=== PATIENT | female | born 1980 | race American Indian/Alaskan Native ===

== ENCOUNTER 2020-11-18 13:36 | Emergency (ER) | payer MEDICAID ==
[2020-11-18] MEDS ORDERED: ASPIRIN 325 MG TAB PO ONE (14:20)
--- NOTE | 2020-11-18 14:20 | Event Note ---
ED Screening Note ED Screening Note: Patient is a 39-year-old female presents emergency room complaints of left-sided chest pain that began at 12:30 PM today States it feels like intermittent sharp jolts She states that she has tingling in her right arm she denies any radiation to her back neck or jaw She denies any fever, nausea, vomiting, diarrhea, cough, shortness of breath Past medical history of hypertension and states that she has been out of her nifedipine 60 mg for 3 days No allergies to medications She endorses tobacco use She states her grandmother had an PR at 25 years old This initial assessment/diagnostic orders/clinical plan/treatment(s) is/are subject to change based on patients health status, clinical progression and re- assessment by fellow clinical providers in the ED. Further treatment and workup at subsequent clinical providers discretion. Patient/guardian urged not to elope from the ED as their condition may be serious if not clinically assessed and managed. Initial orders include: Chest pain protocol
[2020-11-18 14:54] LABS: Basophils % (Auto) 0.7 % (0.0-1.8); Eosinophils # (Auto) 0.2 K/mm3 (0.0-0.4); Eosinophils % (Auto) 4.1 % (0.0-4.3); Hematocrit 26.2 % (30.3-42.9); Hemoglobin 8.4 gm/dl (10.1-14.3); Lymphocytes # (Auto) 2.1 K/mm3 (1.2-5.4); Lymphocytes % (Auto) 35.8 % (13.4-35.0); Mean Corpuscular HGB Conc 32 % (30-34); Monocytes # (Auto) 0.3 K/mm3 (0.0-0.8); Monocytes % (Auto) 5.1 % (0.0-7.3); Red Blood Count 4.27 M/mm3 (3.65-5.03)
[2020-11-18] MEDS ORDERED: ASPIRIN 325 MG TAB PO SCH (15:00)
[2020-11-18 15:01] LABS: Mean Corpuscular Volume 61 fl (79-97)
[2020-11-18 15:19] LABS: Alanine Aminotransferase 9 units/L (7-56); Albumin 3.7 g/dL (3.9-5); Blood Urea Nitrogen 8 mg/dL (7-17); Calcium 8.5 mg/dL (8.4-10.2); Hemolysis Index 0
[2020-11-18 15:25] LABS: BUN/Creatinine Ratio 13
--- NOTE | 2020-11-18 15:38 | XRay Report ---
XR chest routine 2V INDICATION / CLINICAL INFORMATION: Chest Pain. COMPARISON: None available. FINDINGS: SUPPORT DEVICES: None. HEART /PULMONARY VASCULATURE: No significant abnormality. LUNGS / PLEURA: No significant pulmonary or pleural abnormality. No pneumothorax. ADDITIONAL FINDINGS: No significant additional findings. IMPRESSION: 1. No acute findings. Signer Name: Gerry Moore MD Signed: 11/18/2020 3:34 PM Workstation Name: [id number]
[2020-11-18] MEDS ORDERED: MORPHINE 4 MG/1 ML INJ IV ONE (17:24)
[2020-11-18] MEDS ORDERED: NITROGLYCERIN 0.4 MG TAB SUBL SL PRN (17:24)
[2020-11-18] MEDS ORDERED: amLODIPine 5 MG TAB PO ONE (17:24)
[2020-11-18] MEDS ORDERED: SODIUM CHLORIDE 0.9% 500 ML 500 ML IV ONE (17:24)
[2020-11-18] MEDS ORDERED: FERROUS SULFATE 325 MG TAB PO ONE (17:24)
--- NOTE | 2020-11-18 17:25 | Emergency Department Report ---
ED Chest Pain HPI - General Chief Complaint: Chest Pain Stated Complaint: CHEST PAIN /HYPERTENSION PUI?: No Time Seen by Provider: 11/18/20 14:18 Source: patient, RN notes reviewed Mode of arrival: Ambulatory Limitations: No Limitations - History of Present Illness Initial Comments: The patient was evaluated in the emergency department for symptoms described in the history of present illness. He/she was evaluated in the context of the global COVID-19 pandemic, which necessitated consideration that the patient might be at risk for infection with the virus that causes COVID-19. Institutional protocols and algorithms that pertain to the evaluation of patients at risk for COVID-19 are in a state of rapid change based on in formation released by regulatory bodies including the CDC and federal and state organizations. These policies and algorithms were followed during the patient's care in the emergency department. Please note that these policies, procedures and recommendations changed on a rapid basis. During the history and physical examination, I am chaperoned by nurse Desirae Anglin The patient is a 39-year-old female with a history of hypertension. She does not have a local primary care doctor. 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 She has not received her COVID-19 vaccination. The patient reports that she was seen at [facility] last month, found to have hypertension, and given a prescription of Norvasc. She has run out of her medication. She presents to the ER today with complaint of left-sided nontraumatic chest pain that is associated with right arm numbness. The patient denies headache, neck pain, vomiting, diaphoresis, shortness of breath. The patient denies hematemesis and bright red blood per rectum. She denies vaginal bleeding and heavy menstruation. She denies oral contraceptive use, travel, surgery, immobilization, leg pain, leg swelling, DVT and pulmonary embolism risk factors. No recent cardiac risk ratification that she is aware of. Has a known diagnosis of hypertension, secondary to 3 years ago, but secondary to multiple social reasons, has not followed up with a primary care doctor in the past 3 years. She also reports that her grandmother had a myocardial infarction at the age of 25. However, she does not believe that her, brother, sister, mother or father have a history of DVT, PE, or CAD. MD Complaint: chest pain -: Sudden, hour(s) Onset: during rest Pain Location: left chest Pain Radiation: RUE Severity: moderate Quality: aching Consistency: intermittent Improves With: rest Worsens With: palpation re: denies: nausea, vomting, diaphoresis, dyspnea, sense of impending doom Aspirin use within the Past 7 Days: (0) No - Related Data On Oral Contraceptives: No Home Medications Medication Instructions Recorded Confirmed Last Taken NIFEdipine [Nifedipine ER] 60 mg PO 11/18/20 Unknown Allergies Allergy/AdvReac Type Severity Reaction Status Date / Time No Known Allergies Allergy Verified 11/18/20 14:37 Heart Score - HEART Score History: Highly suspicious EKG: Non-specific Age: < 45 Risk factors: 1-2 risk factors Troponin: < normal limit HEART Score: 4 - EKG Read Time Time EKG Completed: 13:53 EKG Read Time: 13:53 - Critical Actions Critical Actions: 0-3 pts:0.9-1.7%risk of adverse cardiac event.Candidate for discharge ED Review of Systems ROS: Stated complaint: CHEST PAIN /HYPERTENSION Other details as noted in HPI Constitutional: denies: fever Eyes: denies: eye discharge ENT: denies: epistaxis Respiratory: denies: cough Cardiovascular: chest pain Gastrointestinal: denies: abdominal pain, vomiting, hematemesis, melena, hematochezia Genitourinary: denies: dysuria Musculoskeletal: denies: back pain Neurological: paresthesias. denies: weakness, confusion, abnormal gait Hematological/Lymphatic: denies: easy bleeding ED Past Medical Hx - Past Medical History Previous Medical History?: Yes Hx Hypertension: Yes - Social History Smoking Status: Unknown if ever smoked - Medications Home Medications: Home Medications Medication Instructions Recorded Confirmed Last Taken Type NIFEdipine [Nifedipine ER] 60 mg PO 11/18/20 Unknown History ED Physical Exam - General Limitations: No Limitations, Other (Chaperoned by nurse Desirae Anglin) General appearance: alert, in no apparent distress - Head Head exam: Present: atraumatic, normocephalic - Eye Eye exam: Present: normal appearance, EOMI. Absent: nystagmus - ENT ENT exam: Present: normal exam, normal orophraynx, mucous membranes moist, normal external ear exam - Neck Neck exam: Present: normal inspection, full ROM. Absent: tenderness, meningismus - Respiratory Respiratory exam: Present: normal lung sounds bilaterally, chest wall tenderness. Absent: respiratory distress, wheezes, rales, rhonchi, stridor - Cardiovascular Cardiovascular Exam: Present: regular rate, normal rhythm, normal heart sounds. Absent: bradycardia, tachycardia, irregular rhythm, systolic murmur, diastolic murmur, rubs, gallop - GI/Abdominal GI/Abdominal exam: Present: soft. Absent: distended, tenderness, guarding, rebound, rigid, pulsatile mass - Rectal Rectal exam: Present: normal inspection, normal rectal tone, heme (-) stool, other (Chaperoned by nurse Desirae Anglin). Absent: heme (+) stool, black stool - Extremities Exam Extremities exam: Present: normal inspection, full ROM, other (2+ pulses noted in the bilateral upper and lower extremities. There is no palpable cord. negative Homans sign. Muscular compartments are soft. The pelvis is stable.). Absent: pedal edema, calf tenderness - Back Exam Back exam: Present: normal inspection. Absent: tenderness, CVA tenderness (R), CVA tenderness (L), paraspinal tenderness, vertebral tenderness - Neurological Exam Neurological exam: Present: alert, normal gait, other (No facial droop. Tongue midline. Extraocular movements intact bilaterally. Facial sensation intact to light touch in V1, V2, V3 distribution bilaterally. 5 and a 5 strength in 4 extremities. Sensation intact to light touch in 4 extremities.). Absent: motor sensory deficit - Psychiatric Psychiatric exam: Present: normal affect, normal mood - Skin Skin exam: Present: warm, dry, intact, normal color. Absent: rash ED Course Vital Signs 11/18/20 11/18/20 11/18/20 13:47 16:57 16:59 Temperature 99.3 F Pulse Rate Respiratory 16 17 18 Rate Blood Pressure 192/86 O2 Sat by Pulse 99 100 Oximetry 11/18/20 11/18/20 11/18/20 17:01 17:15 17:31 Temperature Pulse Rate 58 L 60 58 L Respiratory 21 13 26 H Rate Blood Pressure 181/96 O2 Sat by Pulse 100 Oximetry 11/18/20 11/18/20 11/18/20 17:45 18:01 18:15 Temperature Pulse Rate 57 L 59 L 61 Respiratory 22 20 15 Rate Blood Pressure 173/91 178/87 179/97 O2 Sat by Pulse 100 100 100 Oximetry 11/18/20 11/18/20 18:31 18:45 Temperature Pulse Rate 62 76 Respiratory 16 17 Rate Blood Pressure 226/111 214/111 O2 Sat by Pulse 100 100 Oximetry - Reevaluation(s) Reevaluation #1: 11/18/20 18:40 EKG #2, interpreted by myself, at 18: 12 Sinus rhythm, bradycardia, rate 55 bpm. Normal axis, normal P wave axis, high left ventricular voltage, and poor R wave progression. Intervals within normal limits. This is an abnormal EKG. This is unchanged from prior. This EKG is not a STEMI. EDGARDO score - Edgardo Score Age > 65: (0) No Aspirin use within the Past 7 Days: (0) No 3 or more CAD Risk Factors: (0) No 2 or more Angina events in past 24 hrs: (1) Yes Known CAD with more than 50% Stenosis: (0) No Elevated Cardiac Markers: (0) No ST Deviation Greater than 0.5mm: (0) No EDGARDO Score: 1 ED Medical Decision Making - Lab Data Result diagrams: 11/18/20 14:24 11/18/20 14:24 Vital Signs 11/18/20 11/18/20 13:47 16:59 Temperature 99.3 F Respiratory 16 18 Rate Blood Pressure 192/86 O2 Sat by Pulse 99 100 Oximetry Lab Results 11/18/20 11/18/20 11/18/20 Range/Units 14:24 14:24 14:24 WBC 5.9 (4.5-11.0) K/mm3 RBC 4.27 (3.65-5.03) M/mm3 Hgb 8.4 L (10.1-14.3) gm/dl Hct 26.2 L (30.3-42.9) % MCV 61 L (79-97) fl MCH 20 L (28-32) pg MCHC 32 (30-34) % RDW 25.0 H (13.2-15.2) % Plt Count (140-440) K/mm3 Lymph % (Auto) 35.8 H (13.4-35.0) % [place] % (Auto) 5.1 (0.0-7.3) % Eos % (Auto) 4.1 (0.0-4.3) % Baso % (Auto) 0.7 (0.0-1.8) % Lymph # (Auto) 2.1 (1.2-5.4) K/mm3 [place] # (Auto) 0.3 (0.0-0.8) K/mm3 Eos # (Auto) 0.2 (0.0-0.4) K/mm3 Baso # (Auto) 0.0 (0.0-0.1) K/mm3 Seg Neutrophils % 54.3 (40.0-70.0) % Seg Neutrophils # 3.2 (1.8-7.7) K/mm3 Sodium 138 (137-145) mmol/L Potassium 4.2 (3.6-5.0) mmol/L Chloride 106.0 (98-107) mmol/L Carbon Dioxide 24 (22-30) mmol/L Anion Gap 12 mmol/L BUN 8 (7-17) mg/dL Creatinine 0.6 (0.6-1.2) mg/dL Estimated GFR > 60 ml/min BUN/Creatinine Ratio 13 % Glucose 90 (65-100) mg/dL Calcium 8.5 (8.4-10.2) mg/dL Total Bilirubin 0.30 (0.1-1.2) mg/dL AST 11 (5-40) units/L ALT 9 (7-56) units/L Alkaline Phosphatase 65 (35-129) units/L Troponin T < 0.010 (0.00-0.029) ng/mL Total Protein 7.2 (6.3-8.2) g/dL Albumin 3.7 L (3.9-5) g/dL Albumin/Globulin Ratio 1.1 % HCG, Qual Negative (Negative) - EKG Data -: EKG Interpreted by [place] EKG shows normal: sinus rhythm Rate: normal - EKG Data When compared to previous EKG there are: previous EKG unavailable 11/18/20 17:57 EKG is interpreted at 13: 56 Sinus rhythm, rate 64 bpm. Normal axis, normal P wave axis, QTC 444 ms, poor R wave progression, and motion artifact. This is an abnormal EKG. This is not a STEMI. There is no prior for comparison. - Radiology Data Radiology results: pending, report reviewed, image reviewed XR chest routine 2V INDICATION / CLINICAL INFORMATION: Chest Pain. COMPARISON: None available. FINDINGS: SUPPORT DEVICES: None. HEART /PULMONARY VASCULATURE: No significant abnormality. LUNGS / PLEURA: No significant pulmonary or pleural abnormality. No pneumothorax. ADDITIONAL FINDINGS: No significant additional findings. IMPRESSION: 1. No acute findings. Signer Name: Gerry Moore MD Signed: 11/18/2020 2:34 PM - Medical Decision Making Differential diagnosis, including but not limited to: GERD, gastritis, hiatal hernia, pneumonia, costochondritis, acute coronary syndrome Assessment and plan: 39-year-old female, who was afebrile, with reassuring vital signs with exception of chronic uncontrolled hypertension, who has equal pulses in the upper and lower extremities, no pulsatile abdominal mass, clear chest x- ray, improving blood pressure, now currently 181 systolic (hypertension is chronic and uncontrolled for the past 3 years), who denies DVT and pulmonary embolism risk factors, who is low risk by Wells criteria for pulmonary embolism, who is PERC negative, not tachycardic, tachypneic or hypoxic, with concerning chest pain, abnormal EKG without prior for comparison, and family history of premature coronary artery disease, moderate risk for major adverse cardiac event as per heart score. During her physical examination, the patient gave verbal consent to have a chest and breast examination, as well as a rectal examination, and I was chaperoned by nurse Desirae Ortiz. Anemia is reviewed and appreciated, the patient has brown stool that is guaiac negative on my examination. This is also likely chronic. It is asymptomatic. Hemoglobin greater than seven, would not transfuse at this time, as the patient does not have a known/demonstrated history of coronary artery disease. Have contacted cardiology on-call, Dr. Cochran, as well as our internal medicine hospital physician, Dr. Sanders, I have discussed the patient's history, physical, pertinent laboratory studies, EKG findings and imaging studies. Admission recommended for cardiac risk ratification, and medical optimization. I discussed this with the patient, and she is agreeable to this plan of care. All questions answered. Critical care attestation.: If time is entered above; I have spent that time in minutes in the direct care of this critically ill patient, excluding procedure time. ED Disposition Clinical Impression: Acute chest pain, Hypertension, Microcytic anemia Disposition: ADMITTED INPATIENT Is pt being admited?: Yes Does the pt Need Aspirin: No Condition: Good Instructions: Chest Pain (ED), Hypertension (ED) Referrals: PRIMARY CARE, [Primary Care Provider] - 3-5 Days
--- NOTE | 2020-11-18 18:26 | History and Physical Report ---
History of Present Illness Chief complaint: My chest hurts and my arm is numb sometimes History of present illness: 39 YO Female with Obesity, HTN presents to ED for evaluation. Patient reports "my chest hurts, and my arm gets numb". Patient states that she has experienced chest pain over the last 1 day with concomitant right arm numbness with persistent symptoms over the same timeframe. Patient states that pain is 3/10, sudden onset, intermittent, relieved with rest, not worsened with exertion, localized to the left chest. Patient also reports medication noncompliance due to running out of her medication. Patient transported to [facility] via private vehicle for further care and evaluation of the aforementioned symptoms. The patient was seen and evaluated in the emergency department. All lab and imaging studies reviewed. Patient found to have symptoms consistent with angina as well as accelerated hypertension. Patient placed in observation status and admitted to telemetry and initiated on chest pain protocol. Patient denies fever, palpitations, productive cough, skin rash, recent ill contacts, or known exposure to COVID-19. Patient has not received COVID-19 vaccination. No prior admission for review. All medication listed at time of admission has been reconciled. Past History Past Medical History: hypertension Past Surgical History: No surgical history, Other (Reviewed) Social history: single. denies: smoking, alcohol abuse, prescription drug abuse Family history: diabetes, hypertension Medications and Allergies Allergies Allergy/AdvReac Type Severity Reaction Status Date / Time No Known Allergies Allergy Verified 11/18/20 14:37 Home Medications Medication Instructions Recorded Confirmed Last Taken Type NIFEdipine [Nifedipine ER] 60 mg PO 11/18/20 Unknown History Active Meds: Active Medications Nitroglycerin (Nitroglycerin 0.4 Mg Tab Subl) 0.4 mg SL .Q5MIN PRN PRN Reason: Chest Pain Review of Systems Constitutional: no weight loss, no weight gain, no fever, no chills Ears, nose, mouth and throat: no ear pain, no ear discharge, no tinnitis, no decreased hearing, no nasal congestion Cardiovascular: chest pain, high blood pressure, no rapid/irregular heart beat, no lightheadedness, no dyspnea on exertion Respiratory: no cough, no cough with sputum, no excessive sputum, no shortness of breath Gastrointestinal: no abdominal pain, no nausea, no vomiting, no diarrhea Genitourinary Female: no pelvic pain, no flank pain, no dysuria, no urinary frequency, no urgency Rectal: no pain, no incontinence, no bleeding Musculoskeletal: no neck stiffness, no neck pain, no shooting arm pain, no arm numbness/tingling, no low back pain, no shooting leg pain Integumentary: no rash, no pruritis, no redness, no sores, no wounds Neurological: no head injury, no transient paralysis, no numbness, no tingling, no seizures, no tremors Psychiatric: no anxiety, no change in sleep habits, no insomnia, no change in libido, no suicidal ideation, no disorientation Endocrine: no cold intolerance, no polydipsia, no nocturia, no excessive sweating Hematologic/Lymphatic: no easy bruising, no lymphadenopathy Allergic/Immunologic: no urticaria, no allergic rhinitis, no persistent infections, no angioedema Exam - Constitutional Vitals: Temp Pulse Resp BP Pulse Ox 99.3 F 18 192/86 100 11/18/20 13:47 11/18/20 16:59 11/18/20 13:47 11/18/20 16:59 General appearance: Present: mild distress, obese - EENT Eyes: Present: PERRL ENT: hearing intact, clear oral mucosa - Neck Neck: Present: supple, normal ROM - Respiratory Respiratory effort: normal Respiratory: bilateral: CTA - Cardiovascular Heart Sounds: Present: S1 & S2. Absent: rub, click - Extremities Extremities: pulses symmetrical, No edema Peripheral Pulses: within normal limits - Abdominal General gastrointestinal: Present: soft, non-tender, non-distended, normal bowel sounds Female genitourinary: Present: normal - Integumentary Integumentary: Present: clear, warm, dry - Musculoskeletal Musculoskeletal: gait normal, strength equal bilaterally - Psychiatric Psychiatric: appropriate mood/affect, intact judgment & insight - Neurologic Neurologic: CNII-XII intact, moves all extremities HEART Score - HEART Score EKG: Non-specific Age: < 45 Risk factors: 1-2 risk factors Troponin: Troponin T < 0.010 ng/mL (0.00-0.029) 11/18/20 17:29 Troponin: < normal limit - Critical Actions Critical Actions: 0-3 pts:0.9-1.7%risk of adverse cardiac event.Candidate for discharge Results - Labs CBC & Chem 7: 11/18/20 14:24 11/18/20 14:24 Labs: Abnormal lab results 11/18/20 11/18/20 Range/Units 14:24 14:24 Hgb 8.4 L (10.1-14.3) gm/dl Hct 26.2 L (30.3-42.9) % MCV 61 L (79-97) fl MCH 20 L (28-32) pg RDW 25.0 H (13.2-15.2) % Lymph % (Auto) 35.8 H (13.4-35.0) % Albumin 3.7 L (3.9-5) g/dL Assessment and Plan - Patient Problems (1) Angina at rest Status: Acute Plan to address problem: Chest pain protocol: Admit to telemetry, serial cardiac enzymes, EKG, remote telemetry, D-dimer, cardiology team consulted. (2) Accelerated hypertension Status: Acute Plan to address problem: Monitor blood pressure every shift, continue medical management, continue prehospital antihypertensive therapy. (3) GERD (gastroesophageal reflux disease) Status: Acute Qualifiers: Esophagitis presence: without esophagitis Qualified Code(s): K21.9 - Gastro-esophageal reflux disease without esophagitis Plan to address problem: PPI therapy, supportive care. (4) Cervical radiculopathy Status: Acute Plan to address problem: X-ray cervical spine, supportive care. (5) DVT prophylaxis Status: Acute Plan to address problem: SCD to bilateral lower extremities while in bed, patient is amatory
[2020-11-18] MEDS ORDERED: HYDROmorphone 1 MG/1 ML INJ IV PRN (18:27)
[2020-11-18] MEDS ORDERED: oxyCODONE /ACETAMINOPHEN 5-325MG TAB PO PRN (18:27)
[2020-11-18] MEDS ORDERED: ALBUTEROL 2.5 MG/3 ML NEBU IH PRN (18:27)
[2020-11-18] MEDS ORDERED: ACETAMINOPHEN 325 MG TAB PO PRN (18:27)
[2020-11-18] MEDS ORDERED: ONDANSETRON 4 MG/2 ML INJ IV PRN (18:27)
[2020-11-18 18:49] VITALS: BP 214/111
[2020-11-19] MEDS ORDERED: PANTOPRAZOLE 20 MG TAB PO SCH (07:30)
[2020-11-19] MEDS ORDERED: NIFEdipine XL 60 MG TAB PO SCH (10:00)
--- NOTE | 2020-11-21 09:42 | Electrocardiograph Report ---
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
--- NOTE | 2020-11-21 09:42 | Electrocardiograph Report ---
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
== END 2020-11-18 18:57 | disposition admitted as inpatient to this hospital (09) ==
LOC: ED 13:36
DX: R07.9 Chest pain, unspecified (principal); D50.9 Iron deficiency anemia, unspecified; I10 Essential (primary) hypertension
CPT/HCPCS: 36415; 71046; 80053; 84484; 84703; 85025; 93005; 99284